=== PATIENT | female | born 1970 | race Caucasian/White ===

== ENCOUNTER 2020-03-23 07:57 | Outpatient (CLI) | payer OTHER, SELFPAY ==
--- NOTE | 2020-03-23 08:11 | MM_ITS ---
WS: [id number] SCREENING DIGITAL MAMMOGRAM WITH CAD HISTORY: SCREENING COMPARISON: 02/13/2019 and 08/28/2013 Bilateral CC and MLO views submitted. Computer aided detection analyzed. Breast composition: The breasts are heterogeneously dense, which may obscure small masses. Focal asym metry in the superior LEFT breast mid to posterior depth measures 6 mm. This is probably fibroglandul ar density is normal and superimposed. Not identified on prior studies. Benign calcifications otherwi se. MM/[place] [id number] IMPRESSION: BI-RADS: 0-Incomplete: Need additional imaging evaluation FOLLOW UP: Need Additional Imaging LEFT breast: Spot compression views ( MLO). True ML. Ultrasound to follow if ab normality persists.
== END 2020-03-23 07:58 | disposition home or self-care (01) ==
LOC: RADSHAW 08:02
PROVIDERS: PCP Family Medicine; Visit Provider Family Medicine
DX: Z12.31 Encounter for screening mammogram for malignant neoplasm of breast (principal); N64.89 Other specified disorders of breast
CPT/HCPCS: 77067

== ENCOUNTER 2020-04-09 07:45 | Outpatient (CLI) | payer OTHER, SELFPAY ==
--- NOTE | 2020-04-09 07:51 | US_ITS ---
WS: [id number] ADDITIONAL VIEWS LEFT MAMMOGRAM LEFT BREAST ULTRASOUND HISTORY: Focal asymmetry superior LT breast mid to posterior, 6mm COMPARISON: 03/23/2020, 02/13/2019 and 08/28/2013 LEFT MAMMOGRAM: Spot compression views and true ML. Asymmetry persists but nearly completely resolves in the upper outer quadrant of the LEFT breast. The re is no discrete well-formed mass. LEFT BREAST ULTRASOUND 2-D and color Doppler imaging submitted. No ultrasound findings to correspond to the asymmetry noted in the upper outer quadrant of the LEFT b reast. US/US breast LT limited* [id number] IMPRESSION: BI-RADS: 3-Probably Benign FOLLOW UP: 6 Month Follow-up Due to the mild new asymmetry in the upper-outer quadrant of the LEFT breast 6 month follow-up is recommended. No abnormality corresponding on the ultrasound. Recommend follow-up mammogram and possible ultrasound in 6 months.
--- NOTE | 2020-04-09 08:00 | MM_ITS ---
WS: [id number] ADDITIONAL VIEWS LEFT MAMMOGRAM LEFT BREAST ULTRASOUND HISTORY: Focal asymmetry superior LT breast mid to posterior, 6mm COMPARISON: 03/23/2020, 02/13/2019 and 08/28/2013 LEFT MAMMOGRAM: Spot compression views and true ML. Asymmetry persists but nearly completely resolves in the upper outer quadrant of the LEFT breast. The re is no discrete well-formed mass. LEFT BREAST ULTRASOUND 2-D and color Doppler imaging submitted. No ultrasound findings to correspond to the asymmetry noted in the upper outer quadrant of the LEFT b [place]ast. MM/[place] [id number] IMPRESSION: BI-RADS: 3-Probably Benign FOLLOW UP: 6 Month Follow-up Due to the mild new asymmetry in the upper-outer quadrant of the LEFT breast 6 month follow-up is recommended. No abnormality corresponding on the ultrasound. Recommend follow-up mammogram and possible ultrasound in 6 months.
== END 2020-04-09 07:46 | disposition home or self-care (01) ==
LOC: RADSHAW 07:47
PROVIDERS: PCP Family Medicine; Visit Provider Family Medicine
DX: N64.89 Other specified disorders of breast (principal)
CPT/HCPCS: 76642; 77065

== ENCOUNTER → 2020-07-01 09:58 | Outpatient (BNVA) | payer OTHER, SELFPAY | PROVIDERS: PCP Family Medicine; Visit Provider Internal Medicine | DX: R76.8 Other specified abnormal immunological findings in serum (principal); M25.50 Pain in unspecified joint; Z11.59 Encounter for screening for other viral diseases; Z79.899 Other long term (current) drug therapy; R53.83 Other fatigue; R56.9 Unspecified convulsions; L71.9 Rosacea, unspecified | CPT/HCPCS: 36415; 82607; 84425; 99203; 99204 ==

== ENCOUNTER 2020-07-06 09:24 | Outpatient (CLI) | payer OTHER, SELFPAY ==
--- NOTE | 2020-07-06 13:00 | XR_ITS ---
WS: [id number] TECHNIQUE: 2 views of the right hand CLINICAL INFORMATION: R76.8 - Other specified abnormal immunological findings in serum COMPARISON: None. FINDINGS: Normal metacarpals. Normal MCP joint. Metacarpal heads are normal in appearance. Normal PIP and DIP j oints. No evidence of acute fracture or dislocation. Radiocarpal joint: Normal. Carpal bones: Normal. XR/XR hand RT 2V [id number] IMPRESSION: No significant erosive changes.
--- NOTE | 2020-07-06 13:30 | XR_ITS ---
WS: [id number] TECHNIQUE: 2 views of the left hand CLINICAL INFORMATION: R76.8 - Other specified abnormal immunological findings in serum COMPARISON: None. FINDINGS: Normal metacarpals. Normal MCP joint. Metacarpal heads are normal in appearance. Normal PIP and DIP j oints. No evidence of acute fracture or dislocation. Radiocarpal joint: Normal. Carpal bones: Normal. XR/XR hand LT 2V [id number] IMPRESSION: No significant erosive changes.
--- NOTE | 2020-07-06 14:00 | XR_ITS ---
WS: [id number] FOOT LEFT TECHNIQUE: 2 views of the left foot CLINICAL INFORMATION: M25.50 - Pain in unspecified joint COMPARISON: None. FINDINGS: No evidence of acute fracture or dislocation. Normal tarsal metatarsal alignment. Normal calcaneus. N ormal visualized talar dome. Mild soft tissue edema. XR/XR foot LT 2V [id number] IMPRESSION: Mild soft tissue edema. Otherwise normal left foot.
--- NOTE | 2020-07-06 14:15 | XR_ITS ---
WS: [id number] FOOT RIGHT TECHNIQUE: 2 views of the right foot CLINICAL INFORMATION: M25.50 - Pain in unspecified joint COMPARISON: None. FINDINGS: Chronic erosive versus post operative or post traumatic changes involving the head of the s econd metatarsal.No evidence of acute fracture or dislocation. Normal tarsal metatarsal alignment. No rmal calcaneus. Normal visualized talar dome. Mild soft tissue edema. XR/XR foot RT 2V [id number] IMPRESSION: 1. Chronic erosive versus post operative or post traumatic changes involving t he head of the second metatarsal. 2. Plantar calcaneal spurring. 3. Mild soft tissue edema.
--- NOTE | 2020-07-06 15:00 | XR_ITS ---
WS: [id number] SI JOINTS TECHNIQUE: 3 views of the sacroiliac joints CLINICAL INFORMATION: L40.9 - Psoriasis, unspecified COMPARISON: None. FINDINGS: Sacroiliac joints are normal in appearance. No significant erosive changes. No periarticular erosions . XR/XR sacroiliac jts m 3V [id number] IMPRESSION: Normal sacroiliac joints.
== END 2020-07-06 09:25 | disposition home or self-care (01) ==
LOC: RADWPI 09:29
PROVIDERS: PCP Family Medicine; Visit Provider Internal Medicine
DX: M25.50 Pain in unspecified joint (principal); R76.8 Other specified abnormal immunological findings in serum; L40.9 Psoriasis, unspecified; R60.0 Localized edema; M77.31 Calcaneal spur, right foot
CPT/HCPCS: 72202; 73120; 73620

== ENCOUNTER → 2020-07-24 08:58 | Outpatient (BNVA) | payer OTHER, SELFPAY | PROVIDERS: PCP Family Medicine; Visit Provider Internal Medicine | DX: R76.8 Other specified abnormal immunological findings in serum (principal); M25.50 Pain in unspecified joint; M79.10 Myalgia, unspecified site; E55.9 Vitamin D deficiency, unspecified; R21 Rash and other nonspecific skin eruption | CPT/HCPCS: 99214 ==

== ENCOUNTER 2021-07-01 07:36 | Outpatient (CLI) | payer OTHER, SELFPAY ==
--- NOTE | 2021-07-01 07:51 | MM_ITS ---
WS: [id number] BILATERAL SCREENING DIGITAL MAMMOGRAM WITH CAD HISTORY: SCREENING COMPARISON: 04/09/2020, 03/23/2020, 02/13/2019 Bilateral CC and MLO views submitted. Computer aided detection analyzed. Breast composition: The breasts are heterogeneously dense, which may obscure small masses. No suspici ous masses, microcalcifications or architectural distortion. MM/[place] [id number] IMPRESSION: BI-RADS: 1-Negative FOLLOW UP: 1 Year Follow-up
== END 2021-07-01 07:37 | disposition home or self-care (01) ==
LOC: RADSHAW 07:43
PROVIDERS: PCP Family Medicine; Visit Provider Family Medicine
DX: Z12.31 Encounter for screening mammogram for malignant neoplasm of breast (principal)
CPT/HCPCS: 77067

== ENCOUNTER 2021-08-03 13:01 | Outpatient (CLI) | payer OTHER, SELFPAY ==
--- NOTE | 2021-08-03 13:15 | XRR_ITS ---
PROCEDURE INFORMATION: Exam: XR Chest Exam date and time: 08/03/2021 1:15 PM Age: 50 years old Clinical indication: Condition or disease; Lung condition and disease; Other: Acute bronchitis; Patient HX: Cough 4-5 weeks TECHNIQUE: Imaging protocol: XR of the chest. Views: 2 views. COMPARISON: [place] [id number] 04/09/2020 8:01 AM FINDINGS: Lungs: Unremarkable. No consolidation. Pleural spaces: Unremarkable. No pleural effusion. No pneumothorax. Heart/Mediastinum: Unremarkable. No cardiomegaly. Bones/joints: Unremarkable. XR/XR chest 2V* [id number] IMPRESSION: No acute findings.
== END 2021-08-03 13:02 | disposition home or self-care (01) ==
LOC: RAD 13:03
PROVIDERS: PCP Family Medicine; Visit Provider Clinical Nurse Specialist Adult Health
DX: J20.9 Acute bronchitis, unspecified (principal)
CPT/HCPCS: 71046

== ENCOUNTER → 2021-10-28 11:01 | Outpatient (BNVA) | payer OTHER, SELFPAY | PROVIDERS: PCP Family Medicine; Visit Provider Internal Medicine Pulmonary Disease | DX: R05.3 Chronic cough (principal); J45.909 Unspecified asthma, uncomplicated; R06.02 Shortness of breath | CPT/HCPCS: 82785; 85025; 86003 ==

== ENCOUNTER 2021-12-07 07:02 | Outpatient (CLI) | payer OTHER, SELFPAY ==
--- NOTE | 2021-12-07 09:37 | PFTS_ITS ---
Date of Study:12/07/21 Date of Dictation: MECHANICS: Forced vital capacity (FVC) is normal. Forced expiratory volume in one second (FEV1) is normal. FEV1/FVC is normal. FLOW VOLUME LOOP: No scooping present, the peak does not exist in the expiratory flow-volume loop likely due to hesitation. LUNG VOLUMES: Total lung capacity (TLC) is normal. Residual volume (RV) is increased. DIFFUSING CAPACITY FOR CARBON MONOXIDE: Normal. INTERPRETATION: The prebronchodilator spirometry is normal. No postbronchodilator spirometry was performed. Total lung capacity is normal. There is mild nonspecific increase in residual volume. Gas exchange (DLCO) is normal. MTDD
== END 2021-12-07 07:03 | disposition home or self-care (01) ==
LOC: RT 07:04
PROVIDERS: PCP Family Medicine; Visit Provider Internal Medicine Pulmonary Disease
DX: J45.909 Unspecified asthma, uncomplicated (principal)
CPT/HCPCS: 94010; 94726; 94729

== ENCOUNTER 2022-07-07 08:37 | Outpatient (CLI) | payer OTHER, SELFPAY ==
--- NOTE | 2022-07-07 08:43 | MM_ITS ---
WS: [id number] Bilateral screening 3D tomosynthesis digital mammogram, 07/07/2022 Clinical Data: SCREENING Comparison: 07/01/2021, 04/09/2020, 03/23/2020, 02/13/2019, 08/28/2013, 05/21/2012, 12/21/2010, 11/30/2009, 1 06/25/2005. Findings: The breast parenchymal pattern shows heterogeneous density. No spiculated masses or clustered calcifi cations are seen. There are no secondary signs of carcinoma. MM/[place] [id number] Impression: 1. Negative bilateral mammogram unchanged. 2. Recommend annual screening mammograms. BIRADS: 1-Negative FOLLOW UP: 1 Year Follow-up The CAD core checker was used.
== END 2022-07-07 08:38 | disposition home or self-care (01) ==
PROVIDERS: PCP Family Medicine; Visit Provider Family Medicine
DX: Z12.31 Encounter for screening mammogram for malignant neoplasm of breast (principal)
CPT/HCPCS: 77063; 77067

== ENCOUNTER 2023-04-01 12:03 | Emergency (ER) | payer OTHER, SELFPAY ==
[2023-04-01 12:13] VITALS: BP 196/115; PULSE 100; RESP 17; TEMP 37.1; O2SAT 99; BMI 41.5
--- NOTE | 2023-04-01 12:47 | XRR_ITS ---
PROCEDURE INFORMATION: Exam: XR Chest Exam date and time: 04/01/2023 12:57 PM Age: 52 years old Clinical indication: Shortness of breath; Additional info: SOB TECHNIQUE: Imaging protocol: Radiologic exam of the chest. Views: 1 view. COMPARISON: CR XR chest 2V* [id number] 08/03/2021 1:19 PM FINDINGS: Lungs: Unremarkable. No consolidation. Pleural spaces: Unremarkable. No pleural effusion. No pneumothorax. Heart/Mediastinum: Unremarkable. No cardiomegaly. Bones/joints: Unremarkable. XR/XR chest 1V portable [id number] IMPRESSION: No acute findings.
[2023-04-01] MEDS: predniSONE 20 mg Tablet 60 MG PO (12:53)
[2023-04-01 13:04] VITALS: PULSE 95; RESP 16; O2SAT 99
[2023-04-01] MEDS: ipratropium-albuterol 3 mL Neb INHALATION (13:04)
[2023-04-01 13:17] VITALS: PULSE 100
--- NOTE | 2023-04-01 14:04 | W.ED.SOB ---
HPI - SOB/Dyspnea General: Chief Complaint: Shortness of Breath/Dyspnea Stated Complaint: sob, work comp Time Seen by Provider: 04/01/23 12:41 History of Present Illness: HPI Narrative: This patient is a 52-year-old white female who presents to the emergency department stating that she has been exposed to a chemical at work which is exacerbating her asthma. 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 She states a chemical was spilled in the lab last week which has caused her wheezing and shortness of breath. She thought the issue was taking care of and she returned to work today, she works weekends, and she had developed the wheezing and shortness of breath again today while at work. Today she felt like she was going to pass out. Patient does have a history of asthma and seizure disorder. She does use an albuterol metered-dose inhaler as needed. She is also on Symbicort. Review of Systems General: Reports: 10 or more systems reviewed and unremarkable except in HPI and below Resp: Reports: dyspnea and wheezing PFSH ED PFSH: Medical History Arthritis Carpal tunnel syndrome on left Epilepsy Surgical History History of hysterectomy History of laparoscopic cholecystectomy History of tonsillectomy Family History Father Cancer Mother Arthritis Asthma Sister Arthritis Social History Smoking and tobacco/nicotine status: never used tobacco/nicotine Alcohol intake: never Physical Exam Const: COMMON NORMALS: no acute distress, patient oriented x3 and no limitations GENERAL APPEARANCE: cooperative and comfortable HENMT: COMMON NORMALS: normocephalic, atraumatic, Normal nasal mucous membranes and turbinates present, moist oral mucous membranes and oropharynx normal HEAD & SCALP: normal to inspection, normocephalic and atraumatic FACE & SINUS: normal facial exam NOSE: Normal nasal mucous membranes and turbinates present Eye: COMMON NORMALS: Equal, round and reactive pupils present, EOMs intact bilaterally and conjunctivae normal GENERAL EYE: appearance normal, both eyes and all related structures CONJUNCTIVA: Yes conjunctivae normal PUPIL: Yes Equal, round and reactive pupils present Neck/C-Spine: COMMON NORMALS: supple and no JVD Chest: COMMONS NORMALS: normal inspection of the chest Resp: COMMON NORMALS: normal respiratory effort and clear to auscultation bilaterally AUSCULTATION: clear to auscultation bilaterally Cardio: COMMON NORMALS: no JVD, regular rate, regular rhythm, No gallops present (Cardio), No murmurs present (Cardio) and No rub (Cardio) RATE: regular rate RHYTHM: regular rhythm GI: COMMON NORMALS: Normal to inspection, nondistended, normoactive bowel sounds present, Soft to palpation and non-tender AUSCULTATION: Yes normoactive bowel sounds PALPATION: Yes Soft to palpation : COMMON NORMALS: Yes no CVA tenderness BLADDER/KIDNEY EXAM: Yes no CVA tenderness Back/Pelvis: COMMON NORMALS: no CVA tenderness and thoracic and lumbar spine normal to inspection Extremity: COMMON NORMALS: normal to inspection Neuro: COMMON NORMALS: patient oriented x3 and CN's II-XII intact bilaterally Psych: COMMON NORMALS: mental status grossly normal, Normal thought process present and cooperative THOUGHT PROCESS: Normal thought process present Skin: COMMON NORMALS: no rashes or lesions noted, turgor normal and no jaundice GENERAL SKIN EXAM: no rashes or lesions noted and turgor normal Course Vital Signs: Vital signs: Vital Signs Temperature 98.8 F 04/01/23 12:13 Pulse Rate 100 04/01/23 13:17 Respiratory Rate 16 04/01/23 13:04 Blood Pressure 196/115 04/01/23 12:13 Pulse Oximetry 99 04/01/23 13:04 Oxygen Delivery Me thod Room Air 04/01/23 13:04 MDM - SOB/Dyspnea Medical Decision Making Patient was given a DuoNeb treatment and 60 mg of prednisone orally. She was discharged in stable condition with a prescription for prednisone burst and taper. She is to use her inhaler as needed. She did request a release from work through next weekend so hopefully they can get the chemical situation resolved prior to her returning. I did write her off work until April 10. Lab Data Labs/Radiology: Radiology Impressions Chest X-Ray 04/01/23 12:47 IMPRESSION: No acute findings. All radiology interpretation(s) finalized by discharge Discharge Plan Discharge Patient Disposition: Home Clinical Impression: Asthma with exacerbation Condition: Stable Prescriptions: New prednisone 5 mg tablets,dose pack See Rx Instructions .ROUTE .COMPLEX Qty: 21 0RF Rx Instructions: prednisone 5 mg: take 8 tablets (40 mg) on Day 1; 7 tablets (35 mg) on Day 2; then decrease by 1 tablet every day until finished No Action Vimpat 200 mg tablet 200 mg PO BID naproxen sodium [Aleve] 220 mg capsule 220 mg PO BID PRN (Reason: Pain) diclofenac sodium [Voltaren Arthritis Pain] 1 % gel 2 g topical QID Rx Instructions: apply to single elbow, wrist or hand; for hand includes palm/fingers/back of hand divalproex [Depakote] 125 mg tablet,delayed release (DR/EC) See Rx Instructions .ROUTE .COMPLEX Rx Instructions: 375 mg orally in the AM 250 mg at noon and 375 in PM budesonide-formoterol [Symbicort] 160-4.5 mcg/actuation HFA aerosol inhaler 2 puff inhalation BID Qty: 10.2 3RF ciprofloxacin HCl 0.3 % drops See Rx Instructions ophthalmic (eye) .COMPLEX Qty: 5 3RF Rx Instructions: put 1-2 drps in affected eye(s) every 2hr up to 8 times/day x2days; then 4 times/day x5days ophthalmic (eye) lorazepam 1 mg tablet See Rx Instructions PO DAILY PRN (Reason: sleep) Qty: 120 3RF Rx Instructions: 1 po qam and mid day, and 1-2 tabs po qhs for anxiety/sleep orally daily PRN; albuterol sulfate 90 mcg/actuation HFA aerosol inhaler See Rx Instructions .ROUTE .COMPLEX Qty: 8.5 12RF Dose Instruction: INHALE TWO PUFFS BY MOUTH EVERY 6 HOURS as needed for SHORTNESS OF BREATH or wheezing Rx Instructions: INHALE TWO PUFFS BY MOUTH EVERY 6 HOURS as needed for SHORTNESS OF BREATH or wheezing clobazam 10 mg tablet 10 mg PO BID cephalexin 500 mg capsule 500 mg PO DAILY Rx Instructions: take 1 capsule BY MOUTH prior TO or post sexual activity NEEDED fluticasone propionate 50 mcg/actuation spray,suspension 1 - 2 spray intranasal DAILY Discharge Orders: Discharge ED (Routine); Ordered 04/01/23 Ordered By: Orestes Dai Referrals: Parish Milan DO [Primary Care Provider] - Patient Instructions: Opioid Safety, Pain Management Stand Alone Forms: Work/School Release Coding Level of Care Code ED Mental Health Advanced Practice Nurse for Tyree Duke
[2023-04-01 14:19] VITALS: PULSE 99; RESP 22; O2SAT 97
== END 2023-04-01 14:22 | disposition home or self-care (01) ==
PROVIDERS: Emergency Provider Emergency Medicine; PCP Family Medicine
DX: J45.901 Unspecified asthma with (acute) exacerbation (principal)
CPT/HCPCS: 71045; 94640; 99284; J7512

== ENCOUNTER 2023-04-25 18:28 | Emergency (ER) | payer BC, SELFPAY ==
[2023-04-25 18:53] VITALS: BP 190/141; PULSE 118; RESP 20; TEMP 36.6; O2SAT 98; BMI 37.1
--- NOTE | 2023-04-25 19:20 | ED_ITS ---
HPI - Seizure 2 General: Chief Complaint: Seizure Stated Complaint: Seizure Time Seen by Provider: 04/25/23 19:01 Source: patient Mode of arrival: ambulatory Limitations: no limitations History of Present Illness: HPI Narrative: 52-year-old female has a history of seiz ures since 2019 she is on Vimpat she has Depakote listed but states that her neurologist stopped her Depakote. She had a grand mal seizure today at 6 PM. Patient is currently awake answering my questions appropriately states she feels like she has a tremor she denies any headaches or fevers. Associated symptoms: Deny chest pain, chills or fever(s) Review of Systems 2 Const: Denies: fever(s), chills, body aches or change in appetite Eyes: Denies: blurry vision or eye discomfort ENMT: Denies: throat pain or dental pain Card: Denies: chest pain Resp: Denies: dyspnea GI: Denies: abdominal pain, nausea, vomiting or diarrhea Musc: Denies: neck pain or back pain Skin/Breast: Denies: rash Neuro: Reports: seizure-like activity; Denies: headache(s) PFSH ED 2 PFSH: Medical History Arthritis Carpal tunnel syndrome on left Epilepsy Surgical History History of laparoscopic cholecystectomy History of hysterectomy History of tonsillectomy Family History Father Cancer Mother Arthritis Asthma Sister Arthritis Social History Smoking and tobacco/nicotine status: never used tobacco/nicotine Alcohol intake: never Physical Exam 2 Const: COMMON NORMALS: no acute distress, patient oriented x3 and healthy appearing HENMT: COMMON NORMALS: normocephalic and atraumatic HEAD & SCALP: n ormocephalic and atraumatic Eye: COMMON NORMALS: conjunctivae normal CONJUNCTIVA: Yes conjunctivae normal Neck/C-Spine: COMMON NORMALS: full ROM and supple Chest: COMMONS NORMALS: normal inspection of the chest and normal palpation of entire chest wall Resp: COMMON NORMALS: normal respiratory effort, No retractions, No use of accessory muscles and clear to auscultation bilaterally AUSCULTATION: clear to auscultation bilaterally Cardio: COMMON NORMALS: regular rate, regular rhythm and No murmurs present (Cardio) RATE: regular rate RHYTHM: regular rhythm Extremity: COMMON NORMALS: normal to inspection and full ROM Neuro: COMMON NORMALS: patient oriented x3, moves all extremities and no focal motor deficits Psych: COMMON NORMALS: mental status grossly normal, Normal thought process present and cooperative THOUGHT PROCESS: Normal thought process present Skin: COMMON NORMALS: no rashes or lesions noted and no wounds GENERAL SKIN EXAM: no rashes or lesions noted Course 2 Reevaluation(s): Reevaluation #1: I was called to the room patient's was concerned she had another seizure. When I walked in the room patient had tremors. Quite anxious was tachycardic she is awake stating get me out of here and talking. I informed the that she did not appear to be having an active seizure she appeared to be quite anxious with tremors. Patient became upset after this I did speak to them at length explained she had no seizure-like activity at this time her electrolytes are normal but we will get a CT head at this time as well and give her dose of Ativan Time: 20:20 Vital Signs: Vital signs: Vital Signs Temperature 97.8 F 04/25/23 18:53 Pulse Rate 106 H 04/25/23 21:28 Respiratory Rate 18 04/25/23 21:28 Blood Pressure 130/96 04/25/23 21:28 Pulse Oximetry 99 04/25/23 21:28 Oxygen Delivery Me thod Room Air 04/25/23 18:53 MDM - Seizure MDM Narrative Medical decision making narrative: Patient presents here with a seizure her head CT and blood work are all normal she is improved here after Ativan she is to continue her seizure medicine at home she is to follow-up with her neurologist she is stable for discharge she is return if worsening. Lab Data 04/25/23 19:19 04/25/23 19:19 Labs: Radiology Impressions Head CT 04/25/23 20:29 IMPRESSION: No acute intracranial abnormality. Laboratory Results WBC 10.41 10^3/uL (3.29-11.43) 04/25/23 19:19 RBC 4.67 10^6/uL (3.85-5.65) 04/25/23 19:19 Hgb 14.30 g/dL (11.27-16.99) 04/25/23 19:19 Hct 42.7 % (36-47) 04/25/23 19:19 MCV 91.4 fl (85-98) 04/25/23 19:19 MCH 30.6 pg (27-33) 04/25/23 19:19 MCHC 33.5 g/dL (30-55) 04/25/23 19:19 RDW 12.6 % (12.1-15.1) 04/25/23 19:19 Plt Count 290 10^3/cmm (157-399) 04/25/23 19:19 MPV 9.2 fL (7.4-10.4) 04/25/23 19:19 Neut % (Auto) 62.4 % 04/25/23 19:19 Lymph % (Auto) 30.5 % 04/25/23 19:19 [place] % (Auto) 4.5 % 04/25/23 19:19 Eos % (Auto) 1.7 % 04/25/23 19:19 Baso % (Auto) 0.6 % 04/25/23 19:19 Neut # (Auto) 6.50 10^3/uL (1.8-7.7) 04/25/23 19:19 Lymph # (Auto) 3.2 10^3/uL (0.8-4.8) 04/25/23 19:19 [place] # (Auto) 0.5 10^3/uL (0.2-0.9) 04/25/23 19:19 Eos # (Auto) 0.2 10^3/uL (0.0-0.8) 04/25/23 19:19 Baso # (Auto) 0.1 10^3/uL (0.0-0.1) 04/25/23 19:19 Nucleated RBC % (auto) 0 % 04/25/23 19:19 Nucleated RBCs # 0.0 /100WBC 04/25/23 19:19 Sodium 136 mmol/L (136-145) 04/25/23 19:19 Potassium 3.7 mmol/L (3.5-5.1) 04/25/23 19:19 Chloride 100 mmol/L (98-107) 04/25/23 19:19 Carbon Dioxide 20 mmol/L (22-29) L 04/25/23 19:19 Anion Gap 19.7 (5-19) H 04/25/23 19:19 BUN 17 mg/dL (6-20) 04/25/23 19:19 Creatinine 0.8 mg/dL (0.5-0.9) 04/25/23 19:19 GFR Calculation 75.0 mL/min (90-130) L 04/25/23 19:19 Glucose 107 mg/dL (65-115) 04/25/23 19:19 Calculated Osmolality 284 mOsm/kg (285-295) L 04/25/23 19:19 Calcium 9.1 mg/dL (8.5-10.5) 04/25/23 19:19 Total Bilirubin 0.5 mg/dL (0.15-1.2) 04/25/23 19:19 Direct Bilirubin 0.20 mg/dL (0.00-0.30) 04/25/23 19:19 AST 30 U/L (0-32) 04/25/23 19:19 ALT 44 U/L (0-33) H 04/25/23 19:19 Alkaline Phosphatase 52 U/L (35-105) 04/25/23 19:19 Total Protein 7.4 g/dL (6.6-8.7) 04/25/23 19:19 Albumin 4.6 g/dL (3.5-5.2) 04/25/23 19:19 Globulin 2.8 g/dL (1.3-4.6) 04/25/23 19:19 Urine Color Yellow (Yellow) 04/25/23 21:25 Urine Appearance Clear (CLEAR) 04/25/23 21:25 Urine pH 5 (5-7) 04/25/23 21:25 Ur Specific [place] 1.020 (1.005-1.030) 04/25/23 21:25 Urine Protein Neg (Negative) 04/25/23 21:25 Urine Glucose (UA) Norm (Normal) 04/25/23 21:25 Urine Ketones Negative (Negative) 04/25/23 21:25 Urine Blood Neg (Negative) 04/25/23 21:25 Urine Nitrate Negative (Negative) 04/25/23 21: Urine Bilirubin Neg (Negative) 04/25/23 21:25 Urine Urobilinogen Neg mg/dL (Negative) 04/25/23 21:25 Ur Leukocyte Esterase Negative (Negative) 04/25/23 21:25 Valproic Acid 2.8 ug/mL (50-100) L 04/25/23 19:19 All radiology interpretation(s) finalized by discharge Discharge Plan Discharge Patient Disposition: Home Clinical Impression: Generalized seizure Condition: Stable Prescriptions: No Action Vimpat 200 mg tablet 200 mg PO BID naproxen sodium [Aleve] 220 mg capsule 220 mg PO BID PRN (Reason: Pain) diclofenac sodium [Voltaren Arthritis Pain] 1 % gel 2 g topical QID Rx Instructions: apply to single elbow, wrist or hand; for hand includes palm/fingers/back of hand divalproex [Depakote] 125 mg tablet,delayed release (DR/EC) See Rx Instructions .ROUTE .COMPLEX Rx Instructions: 375 mg orally in the AM 250 mg at noon and 375 in PM budesonide-formoterol [Symbicort] 160-4.5 mcg/actuation HFA aerosol inhaler 2 puff inhalation BID Qty: 10.2 3RF ciprofloxacin HCl 0.3 % drops See Rx Instructions ophthalmic (eye) .COMPLEX Qty: 5 3RF Rx Instructions: put 1-2 drps in affected eye(s) every 2hr up to 8 times/day x2days; then 4 times/day x5days ophthalmic (eye) lorazepam 1 mg tablet See Rx Instructions PO DAILY PRN (Reason: sleep) Qty: 120 3RF Rx Instructions: 1 po qam and mid day, and 1-2 tabs po qhs for anxiety/sleep orally daily PRN; albuterol sulfate 90 mcg/actuation HFA aerosol inhaler See Rx Instructions .ROUTE .COMPLEX Qty: 8.5 12RF Dose Instruction: INHALE TWO PUFFS BY MOUTH EVERY 6 HOURS as needed for SHORTNESS OF BREATH or wheezing Rx Instructions: INHALE TWO PUFFS BY MOUTH EVERY 6 HOURS as needed for SHORTNESS OF BREATH or wheezing chlorzoxazone 500 mg tablet 500 mg PO BID Qty: 180 3RF clobazam 10 mg tablet 10 mg PO BID cephalexin 500 mg capsule 500 mg PO DAILY Rx Instructions: take 1 capsule BY MOUTH prior TO or post sexual activity NEEDED fluticasone propionate 50 mcg/actuation spray,suspension 1 - 2 spray intranasal DAILY prednisone 5 mg tablets,dose pack See Rx Instructions .ROUTE .COMPLEX Qty: 21 0RF Rx Instructions: prednisone 5 mg: take 8 tablets (40 mg) on Day 1; 7 tablets (35 mg) on Day 2; then decrease by 1 tablet every day until finished Discharge Orders: Discharge ED (Routine); Ordered 04/25/23 Ordered By: Tiara Camejo Referrals: Parish Milan, [Primary Care Provider] - 1-3 days Discharge Diet: Advance as tolerated Discharge Activity: Resume usual activity Patient Instructions: Recurrent Seizures in Adults (ED) Coding Level of Care Code ED Hydraulic Press In Operator for Tyree Duke
[2023-04-25 19:38] LABS: Basophils # 0.1 10^3/uL (0.0-0.1); Basophils % 0.6 %; Eosinophils # 0.2 10^3/uL (0.0-0.8); Eosinophils % 1.7 %; Hematocrit 42.7 % (36-47); Lymphocytes # 3.2 10^3/uL (0.8-4.8); Lymphocytes % 30.5 %; Mean Corpuscular HGB Conc 33.5 g/dL (30-55); Mean Corpuscular Hemoglobin 30.6 pg (27-33); Mean Corpuscular Volume 91.4 fl (85-98); Mean Platelet Volume 9.2 fL (7.4-10.4); Monocytes # 0.5 10^3/uL (0.2-0.9); Monocytes % 4.5 %; Neutrophils % 62.4 %; Nucleated Red Blood Cells % 0 %; Platelet Count 290 10^3/cmm (157-399); Red Blood Count 4.67 10^6/uL (3.85-5.65); Red Cell Distribution Width 12.6 % (12.1-15.1); White Blood Count 10.41 10^3/uL (3.29-11.43)
[2023-04-25 19:40] VITALS: BP 161/100; PULSE 110; RESP 16; O2SAT 95
[2023-04-25] MEDS: LORazepam 2 mg/mL INJ 1 mL 1 MG IVP ×2 (19:40→21:25)
[2023-04-25 20:03] LABS: Anion Gap 19.7 (5-19); Blood Urea Nitrogen 17 mg/dL (6-20); Calcium 9.1 mg/dL (8.5-10.5); Carbon Dioxide 20 mmol/L (22-29); Chloride 100 mmol/L (98-107); Glucose 107 mg/dL (65-115); Osmolality Calculated 284 mOsm/kg (285-295); Potassium 3.7 mmol/L (3.5-5.1); Sodium 136 mmol/L (136-145)
--- NOTE | 2023-04-25 20:29 | CTR_ITS ---
PROCEDURE INFORMATION: Exam: CT Head Without Contrast Exam date and time: 04/25/2023 9:02 PM Age: 52 years old Clinical indication: Other: Seizure TECHNIQUE: Imaging protocol: Computed tomography of the head without contrast. Radiation optimization: All CT scans at this facility use at least one of these dose optimization techniques: automated exposure control; mA and/or kV adjustment per patient size (includes targeted exams where dose is matched to clinical indication); or iterative reconstruction. REPORTING DATA: Count of CT and Cardiac NM exams in prior 12 months: This patient has received 0 known CTs and 0 known cardiac nuclear medicine studies in the 12 months prior to the current study. COMPARISON: No relevant prior studies available. RADIATION DOSE METRICS: Total DLP (mGy-cm): 1071 FINDINGS: Brain: No hemorrhage. No edema. 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 No mass effect. Cerebral ventricles: No ventriculomegaly. Paranasal sinuses: Visualized sinuses are unremarkable. No fluid levels. Mastoid air cells: Visualized mastoid air cells are well aerated. Bones/joints: Unremarkable. No acute fracture. Soft tissues: Unremarkable. CT/CT head wo con* [id number] IMPRESSION: No acute intracranial abnormality.
[2023-04-25 20:49] LABS: Alanine Aminotransferase 44 U/L (0-33); Albumin Level 4.6 g/dL (3.5-5.2); Alkaline Phosphatase 52 U/L (35-105); Aspartate Amino Transferase 30 U/L (0-32); Globulin 2.8 g/dL (1.3-4.6); Total Bilirubin 0.5 mg/dL (0.15-1.2); Total Protein 7.4 g/dL (6.6-8.7)
[2023-04-25] MEDS: sodium chloride 0.9% 1,000 ML 999 ML IV (21:25)
[2023-04-25 21:28] VITALS: BP 130/96; PULSE 106; RESP 18; O2SAT 99
[2023-04-25 21:29] LABS: Add Urine Microscopic? NO; Charge for UA Resulting for Rev
[2023-04-25 21:37] LABS: Blood Urine Neg (Negative); Glucose Urine UA Norm (Normal); Ketones Urine Negative (Negative); Protein Urine Neg (Negative); Urine Appearance Clear (CLEAR); Urine Color Yellow (Yellow); pH Urine 5 (5-7)
[2023-04-25 21:38] LABS: Bilirubin Urine Neg (Negative); Leukocyte Esterase Urine Negative (Negative); Nitrate Urine Negative (Negative); Urobilinogen Urine Neg (Negative)
[2023-04-25 21:53] LABS: Valproic Acid Level 2.8 ug/mL (50-100)
[2023-04-25 22:19] VITALS: BP 130/96; PULSE 106; RESP 18; TEMP 36.6; O2SAT 99
== END 2023-04-25 22:22 | disposition home or self-care (01) ==
PROVIDERS: Emergency Provider Emergency Medicine; PCP Family Medicine
DX: G40.409 Other generalized epilepsy and epileptic syndromes, not intractable, without status epilepticus (principal)
CPT/HCPCS: 70450; 80048; 80076; 80164; 81003; 85025; 96361; 96374; 96376; 99285; J2060; J7030

== ENCOUNTER → 2023-05-08 15:53 | Outpatient (BNVA) | payer BC, SELFPAY | PROVIDERS: PCP Family Medicine; Visit Provider Family Medicine | DX: R56.9 Unspecified convulsions (principal) | CPT/HCPCS: 80164 ==

== ENCOUNTER → 2023-06-05 09:44 | Outpatient (BNVA) | payer OTHER, SELFPAY | PROVIDERS: PCP Family Medicine; Visit Provider Family Medicine | DX: R89.9 Unspecified abnormal finding in specimens from other organs, systems and tissues (principal); R53.81 Other malaise; G40.909 Epilepsy, unspecified, not intractable, without status epilepticus; M79.10 Myalgia, unspecified site; R21 Rash and other nonspecific skin eruption; R76.8 Other specified abnormal immunological findings in serum; M25.50 Pain in unspecified joint; R53.83 Other fatigue; J45.41 Moderate persistent asthma with (acute) exacerbation | CPT/HCPCS: 80164 ==

== ENCOUNTER 2023-08-09 10:47 | Outpatient (CLI) | payer OTHER, SELFPAY ==
--- NOTE | 2023-08-09 10:52 | XRR_ITS ---
PROCEDURE INFORMATION: Exam: XR Chest Exam date and time: 08/09/2023 10:56 AM Age: 52 years old Clinical indication: Cough and shortness of breath; Additional info: Rule out pneumonia TECHNIQUE: Imaging protocol: Radiologic exam of the chest. Views: 2 views. COMPARISON: CR XR chest 1V portable [id number] 04/01/2023 12:57 PM FINDINGS: Lungs: Unremarkable. No consolidation or mass. Pleural spaces: Unremarkable. No pleural effusion. No pneumothorax. Heart/Mediastinum: Unremarkable. No cardiomegaly. Bones/joints: Unremarkable. XR/XR chest 2V* [id number] IMPRESSION: No acute findings.
== END 2023-08-09 10:48 | disposition home or self-care (01) ==
LOC: RAD 10:48
PROVIDERS: PCP Family Medicine; Visit Provider Internal Medicine Pulmonary Disease
DX: R05.8 Other specified cough (principal); R06.02 Shortness of breath
CPT/HCPCS: 71046

== ENCOUNTER → 2023-11-10 10:31 | Outpatient (BNVA) | payer BC, SELFPAY | PROVIDERS: PCP Family Medicine; Visit Provider Family Medicine | DX: G40.909 Epilepsy, unspecified, not intractable, without status epilepticus (principal) | CPT/HCPCS: 80053; 80061; 83036; 84439; 84443; 85025 ==

== ENCOUNTER 2024-07-03 08:43 | Outpatient (CLI) | payer BC, SELFPAY ==
[2024-07-03 09:38] LABS: Estmated Average Glucose 111; Hemoglobin A1C 5.5 % (4.0-6.0)
[2024-07-03 10:04] LABS: Alanine Aminotransferase 37 U/L (0-33); Albumin Level 4.2 g/dL (3.5-5.2); Alkaline Phosphatase 81 U/L (35-105); Anion Gap 15.3 (5-19); Aspartate Amino Transferase 21 U/L (0-32); Blood Urea Nitrogen 12 mg/dL (6-20); Calcium 9.1 mg/dL (8.5-10.5); Carbon Dioxide 24 mmol/L (22-29); Chloride 105 mmol/L (98-107); Chol HDL Ratio 5.65 mg/dL (0.0-4.40); Cholesterol 209 mg/dL (0-200); Estradiol 20.9 pg/mL; Follicle Stimulating Hormone 28.3 mIU/mL; Glomerular Filtration Rate 74.7 mL/min (90-130); Glucose 105 mg/dL (65-115); HDL Cholesterol 37 mg/dL (60-100); LDL Cholesterol Calculated 150 mg/dL (50-129); LDL HDL Ratio 4.05 RATIO (0.00-3.22); Luteinizing Hormone 22.7 mIU/mL (0.5-41.7); Osmolality Calculated 290 mOsm/kg (285-295); Potassium 4.3 mmol/L (3.5-5.1); Progesterone 0.112 ng/mL; Sodium 140 mmol/L (136-145); Total Bilirubin 0.2 mg/dL (0.15-1.2); Total Protein 7.2 g/dL (6.6-8.7); Triglycerides 112 mg/dL (0-150)
[2024-07-03 10:09] LABS: Urine Creatinine 58 mg/dL (28-217)
[2024-07-03 10:14] LABS: Creatinine Urine, Random 163 mg/dL (28-217); Microalbum Creatinine Ratio Ur 6 mg/dL (0-20); Microalbumin Random Urine 1 ug/dL (0-20)
[2024-07-03 10:18] LABS: Total Volume Urine 2350 ml
[2024-07-03 12:51] LABS: Cortisol Random 17.26 ug/dL (2.47-19.5)
== END 2024-07-03 08:44 | disposition home or self-care (01) ==
PROVIDERS: PCP Family Medicine; Visit Provider Internal Medicine
DX: E11.9 Type 2 diabetes mellitus without complications (principal); N95.1 Menopausal and female climacteric states; R23.2 Flushing
CPT/HCPCS: 36415; 80053; 80061; 82044; 82530; 82533; 82570; 82670; 83001; 83002; 83036; 84144

== ENCOUNTER 2024-09-06 06:50 | Outpatient (CLI) | payer BC, SELFPAY ==
--- NOTE | 2024-09-06 07:00 | USCV_ITS ---
Brenda Mccracken Age: 53 Gender: F : 1970 Exam Date: 09/06/2024 07:15 Ordering Phys: Alex Paniagua MD Technologist: aMykel Meyer Exam Location: [facility] [place] Indication: sob BP: 152 / 84 HR: 84 Rhythm: Sinus Technical Quality: Adequate MEASUREMENTS (Male / Female) Normal Values 2D ECHO LV Diastolic Diameter PLAX 4.4 cm 4.2 - 5.9 / 3.9 - 5.3 cm IVS Diastolic Thickness 1.1 cm 0.6 - 1.0 / 0.6 - 0.9 cm IVS Systolic Thickness 1.4 cm LVPW Diastolic Thickness 1.3 cm 0.6 - 1.0 / 0.6 - 0.9 cm LVPW Systolic Thickness 1.9 cm LVOT Diameter 2.0 cm LV Ejection Fraction 2D Teich 66.4 % LV Ejection Fraction MOD 4C 63.4 % LV Ejection Fraction MOD 2C 58.7 % LV Ejection Fraction 2C AL 61.4 % LA Diameter 3.3 cm RA Systolic Volume 4C AL 22.6 ml RA Systolic Volume 4C MOD 22.3 ml LA Sys Volume AL 42.6 cm cubed LA Sys Volume Index AL 18.6 cm cubed/m squared Aorta at Sinotubular Diameter 2.2 cm IVC Diameter 1.5 cm M-MODE LA Ao Ratio MM 1.6 AV Cusp Separation MM 2.0 cm DOPPLER AV Peak Velocity 131.0 cm/s LVOT Peak Velocity 90.0 cm/s AV Area Cont Eq vti 2.4 cm squared AV Area Cont Eq pk 2.2 cm squared MV Peak Velocity 80.0 cm/s MV Area PHT 5.4 cm squared Mitral E to A Ratio 1.2 TR Peak Velocity 341.0 cm/s TR Peak Gradient 46.5 mmHg TR Mean Velocity 280.0 cm/s TR Mean Gradient 32.6 mmHg TR Velocity Time Integral 80.1 cm PV Peak Velocity 67.0 cm/s RV Ejection Time 0.3 s FINDINGS Left Ventricle Normal left ventricular size, systolic function and wall thickness, with no regional wall motion abnormalities. Left ventricular ejection fraction is estimated at 65 %. Normal diastolic function. Right Ventricle Normal right ventricular size and systolic function. Right Atrium Normal right atrial size. Left Atrium Normal left atrial size. Mitral Valve Structurally normal mitral valve. Mild mitral annular calcification. No mitral valve regurgitation. Aortic Valve Structurally normal trileaflet aortic valve. No aortic valve stenosis. No aortic valve regurgitation. Tricuspid Valve Structurally normal tricuspid valve. Trace tricuspid valve regurgitation. TR gradient mildly increased at 32 mmHg. Estimated pulmonary pressures 37 mmHg. Pulmonic Valve Structurally normal pulmonic valve. Trace pulmonary valve regurgitation. Pericardium No pericardial effusion. Aorta Normal size aortic root and proximal ascending aorta. IVC Normal IVC dimension with >50% respiratory change of the inferior vena cava. CONCLUSIONS Normal left ventricular systolic function. Estimated LVEF normal at 65%. Normal diastolic function. Normal chamber sizes. No significant valvular abnormality noted. Mildly elevated TR gradient and pulmonary pressures at 37 mmHg. Silver Dominguez MD (Electronically Signed) Final Date: 06 September 2024 11:46 S
== END 2024-09-06 06:51 | disposition home or self-care (01) ==
PROVIDERS: PCP Family Medicine; Visit Provider Internal Medicine Pulmonary Disease
DX: R06.02 Shortness of breath (principal); I34.81 Nonrheumatic mitral (valve) annulus calcification
CPT/HCPCS: 93306

== ENCOUNTER 2025-05-02 10:26 | Outpatient (CLI) | payer BC, SELFPAY ==
--- NOTE | 2025-05-02 10:34 | XR_ITS ---
WS: [id number] XR hand LT 2V [id number] REASON FOR EXAM: LEFT WRIST JOINT PAIN FINDINGS: No fracture or focal bone lesion. No periosteal reaction. Mild narrowing of the joint space with mild subchondral sclerosis and minimal osteophytosis in the 3 joints of the thumb most notably the CMC joint. XR/XR hand LT 2V [id number] IMPRESSION: Mild osteoarthritis of the thumb.
--- NOTE | 2025-05-02 10:35 | XR_ITS ---
WS: [id number] XR wrist LT min 3V* [id number] REASON FOR EXAM: LEFT WRIST JOINT PAIN FINDINGS: No fracture or focal bone lesion. No periosteal reaction or bone erosion. Normal joint spaces of the wrist. Normal carpal bone alignment. XR/XR wrist LT min 3V* [id number] IMPRESSION: No significant bone or joint abnormality.
== END 2025-05-02 10:27 | disposition home or self-care (01) ==
PROVIDERS: PCP Family Medicine; Visit Provider Family Medicine
DX: M25.532 Pain in left wrist (principal); M18.12 Unilateral primary osteoarthritis of first carpometacarpal joint, left hand
CPT/HCPCS: 73110; 73120